=== PATIENT | male | born 1960 | race Caucasian/White ===

== ENCOUNTER 2024-08-03 06:13 | Day surgery (SDC) | payer OTHER, SELFPAY | END 2024-08-03 14:12 | disposition home or self-care (01) | LOC: GI 06:13 | PROVIDERS: ATTENDING PHYSICIAN Internal Medicine | DX: Z12.11 Encounter for screening for malignant neoplasm of colon (principal); D12.3 Benign neoplasm of transverse colon; K63.5 Polyp of colon; Z86.0100 Personal history of colon polyps, unspecified | CPT/HCPCS: 45385; 45380; 88305 ==